=== PATIENT | male | born 1970 | race Caucasian/White ===

== ENCOUNTER 2016-09-20 16:49 | Emergency (ER) | payer SELFPAY ==
[~2016-09-20 16:49] MED LIST: BACTRIM DS1 TA1 PO; NORCO 5/325 TAB1 TAB PO; [UNRECOGNIZED DRUG - OTHER] PO; no home meds
== END 2016-09-20 19:42 ==
LOC: EDMED 16:49
PROC: 2W3DXYZ Immobilization of Left Lower Arm using Other Device (ICD-10-PCS; principal; 2016-09-20)
DX: S62.394A Other fracture of fourth metacarpal bone, right hand, initial encounter for closed fracture (principal); W22.09XA Striking against other stationary object, initial encounter